=== PATIENT | female | born 1970 | race Caucasian/White ===

== ENCOUNTER 2018-01-01 13:29 | Emergency (ER) | payer MEDICAID ==
[~2018-01-01] VITALS: Ht 165.1 cm; Wt 84.8 kg
[~2018-01-01 13:29] MED LIST: ACETAMINOPHEN-1 EAC1 PO; ADVAIR 250-501 EACH IH; AMITRIPTYLINE H50 M3 GT; BACLOFEN20 MG PO; BACTRIM DS TAB1 EACH PO; BENTYL 10 MG CA10 M1 PO; BENTYL20 MG PO; BUPROPION HCL100 MG PO; BUSPAR15 MG PO; BUSPIRONE HCL10 MG PO; CARISOPRODOL 3350 MG PO; CELEXA40 MG PO; CLONAZEPAM; CLONAZEPAM 0.50.5 M1 PO; CLONAZEPAM 1 MG1 M1 NG; CLONAZEPAM 1 MG1 M1 PO; DILAUDID2 M1; DIVALPROEX SOD250 M3 PO; DUONEB 2.5-0.5 M3 ML INH; EFFEXOR XR75 MG PO; FENTANYL PA50 MCG/HR TOP; FENTANYL PA50 MCG/HR TRANSDERM; FLEXERIL PO; GABAPENTIN 100100 MG PO; HOME RESPIRATORY TX MISCELL; HYSINGLA ER20 MG PO; KLONOPIN1 MG PO; LEVAQUIN 500 M500 M1 PO; LEVAQUIN 500 M500 M2 PO; LEXAPRO20 MG PO; LYRICA 75 MG CA75 MG PO; METAXALL800 MG PO; MOBIC15 MG PO; NAPROSYN500 MG PO; NEURONTIN 300300 M1 PO; NEURONTIN 400400 M1 PO; NEURONTIN 400M400 M2 PO; NEXIUM 24HR20 MG PO; NEXIUM20 M1 PO; NEXIUM40 MG PO; NICOTINE TRANSD21 M1; NICOTINE TRANSD21 M1 TRANSDERM; NORCO 5-325 TA1 EACH PO; OXYCODONE HCL 55 MG PO; OXYCODONE HCL20 M1 PO; OXYCONTIN10 M1 PO; PERCOCET 5-3251 EACH PO; PHENERGAN 25 MG25 M1 PO; PREDNISONE 20 M20 MG PO; ROXICODONE5 M2 PO; SEROQUEL 100 M100 M1 PO; SEROQUEL 50 MG50 MG PO; SEROQUEL XR200 MG PO; SEROQUEL XR400 MG PO; SEROQUEL200 MG PO; SEROQUEL300 MG PO; SYNTHROID25 MCG PO; TOPROL XL25 MG PO; TRAMADOL 50 MG50 MG PO; TRAZADONE; TRAZODONE 150150 M1 PO; TRAZODONE HCL100 MG PO; ULTRAM 50MG TAB50 MG PO; VENLAFAXIN75 MG/1 T2 PO; VENLAFAXINE HC150 M1 PO; VENTOLIN HFA 1818 GM PO; VENTOLIN17 GM INH; VISTARIL 25 MG25 M1; VITAMIN B-12500 MCG PO; VITAMIN D3400 UNIT PO; XANAX 0.5 MG0.5 M1 PO; XARELTO10 M1 PO; ZANAFLEX4 MG PO; ZANTAC 7575 MG PO; ZOFRAN 4 MG ORAL4 M1 DIS; ZOHYDRO ER15 M1 PO; hydrocortisone PO
[2018-01-01] MEDS ORDERED: HYSINGLA ER60 MG PO (13:40)
[2018-01-01] MEDS ORDERED: CALCIUM 600 +1 EAC1 PO (13:43)
[2018-01-01] MEDS ORDERED: NEXIUM40 MG PO (13:44)
[2018-01-01] MEDS ORDERED: LOPRESSOR25 PO (13:44)
[2018-01-01] MEDS ORDERED: TRAMADOL 50 MG50 MG PO (13:46)
[2018-01-01 14:07] LABS: ABSOLUTE BASOPHILS 0.1 thou/uL (0.0-0.2); ABSOLUTE EOSINOPHILS 0.7 thou/uL (0.0-0.7); ABSOLUTE LYMPHOCYTES 3.6 thou/uL (0.8-5.3); ABSOLUTE MONOCYTES 0.8 thou/uL (0.0-1.2); ABSOLUTE NEUTROPHILS 6.2 thou/uL (1.6-8.1); BASOPHILS 0.8 %; HEMATOCRIT 35.7 % (37.0-47.0); HEMOGLOBIN 11.8 gm/dL (12.0-15.0); LYMPHOCYTES 31.4 %; MCH 27.9 pg (26.0-34.0); MCHC 33.2 g/dL (28.0-37.0); MCV 84.1 fL (80.0-100.0); MONOCYTES 7.3 %; MPV 6.8 fl. (7.2-11.1); NUCLEATED RBCS 0 /100WBC; PLATELET COUNT* 367 thou/uL (150-400); POLYS 54.5 %; RBC 4.24 mil/uL (4.20-5.00); RDW-CV 16.3 % (10.5-14.5); WBC 11.5 thou/uL (4.0-11.0)
[2018-01-01 14:16] LABS: ANION GAP 10 mmol/L (7-16); BUN 18 mg/dL (7-18); CALCIUM 8.8 mg/dL (8.5-10.1); CHLORIDE 98 mmol/L (98-107); CO2 26 mmol/L (21-32); CREATININE 1.8 mg/dL (0.6-1.3); GLUCOSE 110 mg/dL (70-99); POTASSIUM 3.6 mmol/L (3.5-5.1); SODIUM 134 mmol/L (136-145)
[2018-01-01 14:18] LABS: APTT 28.8 Seconds (25.0-31.3); PROTIME 9.4 Seconds (9.20-11.50)
[2018-01-01 14:25] LABS: ALBUMIN 3.7 g/dL (3.4-5.0); ALKALINE PHOSPHATASE 113 U/L (46-116); LIPASE 100 U/L (73-393); SGOT 34 U/L (15-37); SGPT 31 U/L (30-65); TOTAL BILIRUBIN 0.2 mg/dL (<0.1-1.0); TOTAL PROTEIN 7.2 g/dL (6.4-8.2); TROPONIN-I LEVEL <0.06 ng/mL (<0.06)
[2018-01-01] MEDS ORDERED: PREDNISONE 20 M20 M1 PO (15:07)
[2018-01-01] MEDS ORDERED: ZPAK PO (15:07)
[2018-01-01 15:18] VITALS: BP 102/58
--- NOTE | 2018-01-01 16:24 | EKG ---
[place] [address] ELECTROCARDIOGRAM REPORT Name: KIMMIE URBINA Room: [facility]#: [id number] Admission: 01/01/18 Attend Phys: Discharge: 01/01/18 Date of : 66 Report #: [id number] THIS REPORT FOR: //name// [facility] ED Test Date: 2018-01-01 Test Time: 14:03:38 Pat Name: KIMMIE URBINA Department: Room: Gender: F Community Coordinator [employer]: Bri REIS : 1970 Requested By: Jonathon Smith Order Number: [id number] MD: Corby Merritt Measurements Intervals [place] Rate: 91 P: 50 TX: 154 QRS: 25 QRSD: 81 T: 17 QT: 362 QTc: 446 Interpretive Statements Sinus rhythm Compared to ECG 05/18/2017 20:16:55 Sinus tachycardia no longer present Atrial abnormality no longer present T-wave abnormality no longer present Electronically Signed On 01-01-2018 16:24:04 CDT by Corby Merritt [email or web address] <ELECTRONICALLY SIGNED> By: Corby Merritt MD, [facility] 01/01/18 1624 1403 140 Corby Merritt MD, [facility] /EPI
== END 2018-01-01 15:19 | disposition home or self-care (01) ==
LOC: M.ERS 13:29
PROVIDERS: Family Medicine
DX: R55 Syncope and collapse (principal); J44.1 Chronic obstructive pulmonary disease with (acute) exacerbation; F41.9 Anxiety disorder, unspecified; G89.29 Other chronic pain; M54.9 Dorsalgia, unspecified; F11.10 Opioid abuse, uncomplicated; F19.10 Other psychoactive substance abuse, uncomplicated; F17.210 Nicotine dependence, cigarettes, uncomplicated; F12.10 Cannabis abuse, uncomplicated; Z88.8 Allergy status to other drugs, medicaments and biological substances

== ENCOUNTER 2018-02-13 14:17 | Emergency (ER) | payer MEDICAID ==
[~2018-02-13] VITALS: Ht 165.1 cm; Wt 86.2 kg
[~2018-02-13 14:17] MED LIST changes: +CALCIUM 600 +1 EAC1 PO; +HYSINGLA ER60 MG PO; +LOPRESSOR25 PO; +PREDNISONE 20 M20 M1 PO; +ZPAK PO
[2018-02-13] MEDS ORDERED: QUETIAPINE FUM100 MG PO (14:44)
[2018-02-13] MEDS ORDERED: PERCOCET 7.5-31 EACH PO (14:45)
[2018-02-13] MEDS ORDERED: PROAIR HFA8.5 GM INH (14:46)
[2018-02-13 15:16] LABS: ABSOLUTE BASOPHILS 0.1 thou/uL (0.0-0.2); ABSOLUTE EOSINOPHILS 0.4 thou/uL (0.0-0.7); ABSOLUTE LYMPHOCYTES 2.7 thou/uL (0.8-5.3); ABSOLUTE MONOCYTES 0.8 thou/uL (0.0-1.2); BASOPHILS 0.9 %; EOSINOPHILS 3.7 %; HEMATOCRIT 33.4 % (37.0-47.0); HEMOGLOBIN 10.9 gm/dL (12.0-15.0); LYMPHOCYTES 22.4 %; MCHC 32.6 g/dL (28.0-37.0); MONOCYTES 6.9 %; MPV 7.3 fl. (7.2-11.1); NUCLEATED RBCS 0 /100WBC; PLATELET COUNT* 566 thou/uL (150-400); POLYS 66.1 %; RBC 3.89 mil/uL (4.20-5.00); RDW-CV 14.3 % (10.5-14.5); WBC 12.2 thou/uL (4.0-11.0)
[2018-02-13 15:20] LABS: CALCIUM 9.1 mg/dL (8.5-10.1); CREATININE 1.5 mg/dL (0.6-1.3); POTASSIUM 3.6 mmol/L (3.5-5.1)
[2018-02-13 15:25] LABS: ALBUMIN 3.2 g/dL (3.4-5.0); TOTAL BILIRUBIN 0.2 mg/dL (<0.1-1.0); TOTAL PROTEIN 7.7 g/dL (6.4-8.2)
[2018-02-13 16:16] LABS: URINE BILIRUBIN NEGATIVE (Negative); URINE BLOOD NEGATIVE (Negative); URINE CLARITY CLEAR; URINE COLOR YELLOW; URINE GLUCOSE-RANDOM NEGATIVE (Negative); URINE KETONES NEGATIVE (Negative); URINE LEUKOCYTES-REFLEX TRACE (Negative); URINE NITRITE-REFLEX NEGATIVE (Negative); URINE PROTEIN NEGATIVE (Negative); URINE UROBILINOGEN 0.2 E.U./dl (0.2-1.0)
[2018-02-13 16:20] LABS: MUCUS None Seen strn/LPF (None Seen); SQUAMOUS >10 Many /LPF (0-3)
[2018-02-13 16:21] LABS: BACTERIA-REFLEX None Seen /HPF (None Seen); CRYSTALS None Seen /LPF (None Seen); HYALINE CASTS 0-3 Few /LPF (None Seen); URINE RBC None Seen /HPF (0-2); URINE WBC-REFLEX 0-5 Rare /HPF (0-5)
[2018-02-13 16:38] LABS: AMP/METHAMP Negative (Negative); BARBITURATES Negative (Negative); BENZODIAZEPINES POSITIVE (Negative); COCAINE Negative (Negative); METHADONE Negative (Negative); OPIATES POSITIVE (Negative); PCP Negative (Negative); THC Negative (Negative)
[2018-02-13] MEDS ORDERED: CIPRO500 MG PO (16:41)
[2018-02-13 16:59] VITALS: BP 106/64
== END 2018-02-13 17:00 | disposition home or self-care (01) ==
LOC: M.ERS 14:17
PROVIDERS: Physician Assistant
DX: G89.18 Other acute postprocedural pain (principal); R10.9 Unspecified abdominal pain; J44.9 Chronic obstructive pulmonary disease, unspecified; J45.909 Unspecified asthma, uncomplicated; F41.9 Anxiety disorder, unspecified; G89.29 Other chronic pain; M54.9 Dorsalgia, unspecified; F17.210 Nicotine dependence, cigarettes, uncomplicated; F12.10 Cannabis abuse, uncomplicated

== ENCOUNTER 2018-02-16 20:36 | Emergency (ER) | payer MEDICAID ==
[~2018-02-16] VITALS: Ht 165.1 cm; Wt 86.2 kg
[~2018-02-16 20:36] MED LIST changes: +CIPRO500 MG PO; +PERCOCET 7.5-31 EACH PO; +PROAIR HFA8.5 GM INH; +QUETIAPINE FUM100 MG PO
[2018-02-16 21:19] LABS: ABSOLUTE BASOPHILS 0.1 thou/uL (0.0-0.2); ABSOLUTE EOSINOPHILS 0.5 thou/uL (0.0-0.7); ABSOLUTE LYMPHOCYTES 2.3 thou/uL (0.8-5.3); ABSOLUTE MONOCYTES 0.8 thou/uL (0.0-1.2); ABSOLUTE NEUTROPHILS 5.1 thou/uL (1.6-8.1); BASOPHILS 0.9 %; HEMATOCRIT 32.2 % (37.0-47.0); HEMOGLOBIN 10.5 gm/dL (12.0-15.0); MCH 27.7 pg (26.0-34.0); MCHC 32.6 g/dL (28.0-37.0); MCV 85.1 fL (80.0-100.0); MONOCYTES 9.5 %; MPV 6.7 fl. (7.2-11.1); NUCLEATED RBCS 0 /100WBC; PLATELET COUNT* 492 thou/uL (150-400); POLYS 57.6 %; RBC 3.79 mil/uL (4.20-5.00); RDW-CV 14.3 % (10.5-14.5); WBC 8.9 thou/uL (4.0-11.0)
[2018-02-16 21:25] LABS: POTASSIUM 3.7 mmol/L (3.5-5.1)
[2018-02-16 21:29] LABS: ALBUMIN 3.2 g/dL (3.4-5.0); TOTAL BILIRUBIN 0.1 mg/dL (<0.1-1.0); TOTAL PROTEIN 7.4 g/dL (6.4-8.2)
[2018-02-16 23:27] VITALS: BP 132/94
== END 2018-02-16 23:29 | disposition home or self-care (01) ==
LOC: M.ERS 20:36
PROVIDERS: Physician Assistant
DX: G89.18 Other acute postprocedural pain (principal); R10.9 Unspecified abdominal pain; Z48.01 Encounter for change or removal of surgical wound dressing; J44.9 Chronic obstructive pulmonary disease, unspecified; J45.909 Unspecified asthma, uncomplicated; F41.9 Anxiety disorder, unspecified; G89.29 Other chronic pain; M54.9 Dorsalgia, unspecified; F17.210 Nicotine dependence, cigarettes, uncomplicated; Z88.8 Allergy status to other drugs, medicaments and biological substances

== ENCOUNTER 2018-06-10 19:16 | Inpatient (IN) | payer MEDICAID ==
[~2018-06-10] VITALS: Ht 165.1 cm; Wt 88.9 kg
--- NOTE | ~2018-06-10 | PROC ---
[facility] [address] [place] [address] PROCEDURE REPORT Name: KIMMIE URBINA Room: [address] IN M.R.#: [id number] Admission: 06/10/18 Attend Phys: Jeffery Davison MD Discharge: 06/17/18 Date of : 66 Report #: [id number] THIS REPORT FOR: //name// For GI report, please see the Provation report in Perceptive 7 content. By: 0705Medical Records Staff GABRIEL /SHELBY
--- NOTE | ~2018-06-10 | CON ---
[facility] [address] [place] [address] CONSULTATION Name: KIMMIE URBINA Room: [place] [address] ADM IN .R.#: [id number] Admission: 06/10/18 Attend Phys: Jeffery Davison MD Discharge: Date of : 66 Report #: [id number] THIS REPORT FOR: //name// CC: Jeffery Linares DATE OF SERVICE: 06/16/2018 REASON FOR CONSULTATION: Dysphagia. HISTORY OF PRESENT ILLNESS: This is a 47-year-old female with significant medical history of COPD, who presented with pneumonia and UTI on 06/10/2018. The patient initially had lactic acidosis. She was checked for pulmonary embolism which was negative. Since hospitalization, she has been treated for her condition with antibiotics and respiratory treatments. She has complained of dysphagia and inability to swallow. We were asked to evaluate her in this regard. The patient admits that she has gastroesophageal reflux disease for which she takes PPI. She denies nausea, vomiting, hematemesis, melena or constipation. 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 ALLERGIES: SIGNIFICANT TO TAPE. MEDICATIONS: Please refer to MAR. SOCIAL HISTORY: The patient smokes 10 cigarettes per day. Denies alcohol use. She also has used recreational drugs such as marijuana. FAMILY HISTORY: Significant for hypertension. PHYSICAL EXAMINATION: VITAL SIGNS: Reveals blood pressure of 100/69, respirations 16, pulse 94, temperature 98.7. LUNGS: Clear. CARDIOVASCULAR: Regular. ABDOMEN: Soft, tender to palpation in periumbilical region. Bowel sounds are positive. NEUROLOGIC: The patient is alert, oriented x 3. She has prostheses of the left eye. LABORATORY DATA: Reveal sodium of 139, potassium 3.9, BUN is 7, creatinine 1.0, glucose 105. Lipase is within normal limit. Liver [place] [address] CONSULTATION Name: KIMMIE URBINA Room: [address] IN [facility].#: [id number] Admission: 06/10/18 Attend Phys: Jeffery Davison MD Discharge: Date of : 66 Report #: [id number] INR is normal. WBC is 8.7 with hemoglobin of 11.3 and platelet of 335. IMAGING: Chest x-ray on 06/13/2018 showed elevation of the right hemidiaphragm with atelectasis in the right lower lung. Minimal pleural effusion and atelectasis with increased atelectasis from previous studies. ASSESSMENT AND PLAN: The patient with long history of gastroesophageal reflux disease who complains of dysphagia. We will consider upper endoscopy to further evaluate this. If the patient has Schatzki ring or strictures, we may consider dilation of her esophagus. We will make further recommendation once her upper endoscopy is complete. By: [id number] 0001Ailyn Bills MD /heriberto
[2018-06-10] MEDS ORDERED: MS CONTIN15 MG PO (19:20)
[2018-06-10] MEDS ORDERED: TIZANIDINE PO (19:20)
[2018-06-10 19:21] VITALS: BP 145/98
[2018-06-10] MEDS ORDERED: LORAZEPAM (19:24)
[2018-06-10] MEDS ORDERED: EFFEXOR PO (19:24)
[2018-06-10] MEDS ORDERED: NEURONTIN 300300 M1 PO (19:25)
--- NOTE | 2018-06-10 19:32 | NUR ---
PT HAS A GLASS EYE PRESENT ON THE LEFT. STATES DUE TO AN ACCIDENT WHEN SHE WAS [age] YEARS OLD. PT ALERT AND ORIENTED. NO EDEMA OBSERVED. STATES SHE "pASSED OUT" AND HIT THE GROUND WHEN SHE WAS AT HOME AND THAT IS WHY HER SO CALLED EMS TO TRANSPORT HER TO THE HOSPITAL.
[2018-06-10 20:18] LABS: ABSOLUTE BASOPHILS 0.1 thou/uL (0.0-0.2); ABSOLUTE EOSINOPHILS 0.4 thou/uL (0.0-0.7); ABSOLUTE MONOCYTES 0.9 thou/uL (0.0-1.2); ABSOLUTE NEUTROPHILS 11.1 thou/uL (1.6-8.1); BASOPHILS 0.5 %; EOSINOPHILS 2.5 %; HEMATOCRIT 33.1 % (37.0-47.0); LYMPHOCYTES 13.9 %; MCHC 33.1 g/dL (28.0-37.0); MCV 84.4 fL (80.0-100.0); MONOCYTES 6.4 %; MPV 7.1 fl. (7.2-11.1); NUCLEATED RBCS 0 /100WBC; PLATELET COUNT* 312 thou/uL (150-400); POLYS 76.7 %; RBC 3.92 mil/uL (4.20-5.00); RDW-CV 13.8 % (10.5-14.5); WBC 14.4 thou/uL (4.0-11.0)
[2018-06-10 20:28] LABS: ANION GAP 7 mmol/L (7-16); BUN 7 mg/dL (7-18); CALCIUM 8.8 mg/dL (8.5-10.1); CHLORIDE 104 mmol/L (98-107); CO2 28 mmol/L (21-32); GLUCOSE 105 mg/dL (70-99); POTASSIUM 3.9 mmol/L (3.5-5.1); SODIUM 139 mmol/L (136-145)
[2018-06-10 20:39] LABS: ALBUMIN 3.6 g/dL (3.4-5.0); ALKALINE PHOSPHATASE 100 U/L (46-116); LIPASE 72 U/L (73-393); MAGNESIUM 2.1 mg/dL (1.8-2.4); NT-PRO BRAIN NAT PEPTIDE 364 pg/mL (<300); SGOT 26 U/L (15-37); SGPT 24 U/L (30-65); TOTAL BILIRUBIN 0.3 mg/dL (<0.1-1.0); TROPONIN-I LEVEL <0.06 ng/mL (<0.06)
[2018-06-10 20:42] LABS: INFLUENZA A ANTIGEN None Detected (None Detect); INFLUENZA B ANTIGEN None Detected (None Detect)
[2018-06-10 21:03] LABS: URINE BILIRUBIN NEGATIVE (Negative); URINE BLOOD NEGATIVE (Negative); URINE CLARITY CLEAR; URINE COLOR STRAW; URINE GLUCOSE-RANDOM NEGATIVE (Negative); URINE KETONES NEGATIVE (Negative); URINE LEUKOCYTES-REFLEX NEGATIVE (Negative); URINE PROTEIN NEGATIVE (Negative); URINE SPECIFIC GRAVITY <= 1.005 (1.005-1.030); URINE UROBILINOGEN 0.2 E.U./dl (0.2-1.0)
[2018-06-10 21:05] LABS: URINE NITRITE-REFLEX POSITIVE (Negative)
[2018-06-10 21:17] LABS: CASTS None Seen /LPF (None Seen); CRYSTALS None Seen /LPF (None Seen); MUCUS None Seen strn/LPF (None Seen); SQUAMOUS 0-3 Few /LPF (0-3)
[2018-06-10 21:18] LABS: BACTERIA-REFLEX 1-9 Few /HPF (None Seen); URINE RBC None Seen /HPF (0-2); URINE WBC-REFLEX None Seen /HPF (0-5)
[2018-06-10 22:40] VITALS: BP 120/74
[2018-06-10 23:00] VITALS: BP 155/85
--- NOTE | 2018-06-11 03:10 | NUR ---
PT ADMIT TO ROOM AT 255. PT LETHARGIC AROUSABLE. O2 SATS 93% ON 3 LITERS. PT APPEARS TO BE VERY MEDICATED. PT BROUGHT MEDICATION TO HOSPITAL. SECURITY PICKED UP MEDICATIONS. PT HAS LEFT PROSTHETIC EYE. SHE TOOK EYE OUT AND LOST IT. RN SEARCHED BED AND FOUND EYE AND PLACED IN LABELED CUP WITH NS. IVF NS @ 150MLS/HR TO L HAND. TELEMETRY SHOWS SR. FALL PRECAUTIONS IN PLACE. WILL CONTINUE TO MONITOR.
[2018-06-11 04:00] VITALS: BP 138/81
[2018-06-11 07:51] VITALS: BP 138/69
--- NOTE | 2018-06-11 08:34 | NUR ---
ASSUMED CARE OF PT THIS AM AROUND 0715- SNOW GROOMER IN PLACE ORDERED, TRACING SR- UPON ASSESSMENT PT NOTED TO BE UP ON PERSONAL PHONE- PT A&O X4- CONTINENT OF BOWEL AND BLADDER- UP AD-ALEJANDRA IN ROOM, STEADY GAIR NOTED- COURSE LUNG SOUNDS WITH EXPIRATORY WHEEZING NOTED- BREATHING TX PER R/T- COUGH NOTED; PT REPORTS YELLOW/DARK SPUTUM- ABDOMEN SOFT/ROUND/OBESE, BS X4 QUADS- PT REPORTS LAST BM 06/10/18- IV NOTED TO LEFT HAND INTACT, IVF INFUSSING PRESCIBED- GOOD PO INTAKE NOTED THIS AM WITH BREAKFAST- PT REPORTS PAIN 04/30 TO LOWER BACK THIS AM- REPOSITIONING IN PLACE- PRN PERCOCET THIS AM AT 0819- CALL LIGHT AND PERSONAL BELONGINGS WITH IN REACH- HOURLY ROUNDS IN PLACE R/T SAFETY/NEEDS- ALL NEEDS MET AT THIS TIME-WCTM
--- NOTE | 2018-06-11 10:06 | EKG ---
[place] [address] ELECTROCARDIOGRAM REPORT Name: KIMMIE URBINA Room: [place] [address] ADM IN .R.#: [id number] Admission: 06/10/18 Attend Phys: Jeffery Davison MD Discharge: Date of : 66 Report #: [id number] THIS REPORT FOR: //name// [facility] ED Test Date: 2018-06-10 Test Time: 19:27:33 Pat Name: KIMMIE URBINA Department: Room: [facility] Gender: F Disaster Or Damage Control Specialist: Ghulam MEJIA : 1970 Requested By: Pedro Owens Order Number: [id number] MD: Corby Merritt Measurements Intervals [place] Rate: 115 P: 131 MN: 141 QRS: 3 QRSD: 86 T: -11 QT: 309 QTc: 428 Interpretive Statements Sinus tachycardia Low voltage, extremity leads Compared to ECG 01/01/2018 14:03:38 Low QRS voltage now present Sinus rhythm no longer present Electronically Signed On 06-11-2018 10:06:31 CDT by Corby Merritt [email or web address] <ELECTRONICALLY SIGNED> By: Corby Merritt MD, FACC 06/11/18 1006 26 26 Corby Merritt MD, [facility] /EPI
--- NOTE | 2018-06-11 11:40 | NUR ---
MET WITH PT TO DISCUSS HOME SITUATION/DC PLANNING. PT STATES SHE LIVES ALONE, HAS S/O REILLY BUT THEY DON'T LIVE TOGETHER ANY LONGER. SHE HAS IN HOME CARE THRU HER MEDICAID WITH [facility], 5.5HR/DAY -5 DAYS/WK. SHE USES WALKER OR W/C. PT STATES SHE HAS BACK PAIN AND CAN ONLY STAND FOR SHORT PERIODS OF TIME. SHE IS ABLE TO DO SOME OF HER OWN ADLS BUT IN HOME CAREGIVERS ASSIST WITH PERSONAL CARE, COOKING, CLEANING, SHOPPING AND TRANPSPORTATION. [place]
[2018-06-11 11:48] VITALS: BP 151/79
[2018-06-11 11:56] LABS: HEMATOCRIT 33.4 % (37.0-47.0); HEMOGLOBIN 10.8 gm/dL (12.0-15.0); MCH 27.8 pg (26.0-34.0); MCHC 32.3 g/dL (28.0-37.0); MCV 85.9 fL (80.0-100.0); MPV 7.7 fl. (7.2-11.1); NUCLEATED RBCS 0 /100WBC; PLATELET COUNT* 280 thou/uL (150-400); RBC 3.89 mil/uL (4.20-5.00); WBC 17.4 thou/uL (4.0-11.0)
[2018-06-11] MEDS ORDERED: CLONAZEPAM 1 MG1 M1 PO (12:08)
[2018-06-11 12:19] LABS: ABSOLUTE LYMPHOCYTES 1.2 thou/uL (0.8-5.3); ABSOLUTE MONOCYTES 0.5 thou/uL (0.0-1.2); ABSOLUTE NEUTROPHILS 15.7 thou/uL (1.6-8.1); ANISOCYTOSIS 1+; PLATELET ESTIMATE ADEQUATE
[2018-06-11 12:20] LABS: POIKILOCYTOSIS 1+
[2018-06-11 16:00] VITALS: BP 144/68
--- NOTE | 2018-06-11 17:25 | NUR ---
PT CLAUDIA RESTING IN BED- [employer] TAX PRINCIPAL IN PLACE TRACING SR/ST THIS SHIFT- IV TO LEFT HAND INTACT, IVF INFUSSING PRESCIBED- LACTIC ORDERED THIS SHIFT AND RESULTED AT 4.9 AT 1206, NOTIFIED WITH ORDERS RECIEVIED FOR BOLUS PER SEPSIS PROTOCOL WITH TOLTAL OF 2600 COMPLETED PRESCIBED- IVF CURRENLTY INFUSSING AT 150ML/HR ORDERED- REDRAW OF LACTIC NOTED TO BE TRENDING DOWN WITH RESULT AT 1409 NOTED TO BE 4.7 AND AT 1622 NOTED TO BE 3.4- ID CONSULTED R/T SEPSIS WITH PNU- RETURNED CONSULT CALL AND STATES HE WILL TRY TO SEE PT THIS EVENING OR IN AM AND TO NOTIFY IF ANY CHANGES PRIOR- BREATHING TX GIVEN PRESCIBED PER R/T THIS SHIFT- PERCOCET GIVEN PER REQUEST AT 1601 R/T BACK PAIN 04/30- PT REPORTS LITTLE EFFECTIVENESS- REPOSITIONING WITH DARK QUIET ROOM IN PLACE- CALL LIGHT AND PERSONAL BELONGINGS WITH IN REACH- HOURLY ROUNDS IN PLACE R/T SAFETY/NEEDS- ALL NEEDS MET AT THIS TIME-WCTM
[2018-06-11 19:38] LABS: AMP/METHAMP Negative (Negative); BARBITURATES Negative (Negative); BENZODIAZEPINES Negative (Negative); COCAINE Negative (Negative); METHADONE Negative (Negative); OPIATES POSITIVE (Negative); PCP Negative (Negative); THC Negative (Negative)
[2018-06-11 20:00] VITALS: BP 162/98
[2018-06-12] VITALS (7 sets, daily range): BP systolic 115–156; BP diastolic 74–103
--- NOTE | 2018-06-12 05:48 | NUR ---
PATIENT RESTED IN BED, NO ACUTE CHANGES. PATIENT DID NOT SHOW SIGNS OF DISTRESS. FALL PRECAUTIONS IN PLACE, CALL LIGHT WITH IN REACH, HOULRY ROUNDING OBSERVED.
--- NOTE | 2018-06-12 09:00 | NUR ---
ASSUMED PT. CARE AND RECEIVED REPORT AT 0730. PT A/OX4, VSS, MONITOR ON TRACING SR. PT. ON 2L NC @ 95%, DOES HAVE CONGESTED COUGH WITH TANNISH COLORED SPUTUM, WHEEZES. PT. REPORTS PAIN IN BAK 04/30, NOT YET TIME FOR PRN MED. [facility]. CALLED AND CLARIFIED PAIN MEDICAITONS AND CLONOZAPAM DOSING. UPDATED IN PT. MED REC AND PHYSICIAN NOTIFIED FOR REORDER. FULL ASSESSMENT COMPLETED, REFER TO CHARTING. CALL LIGHT IN REACH, WILL CONTINUE WITH PLAN OF CARE.
[2018-06-12] MEDS ORDERED: OXYCODONE HCL10 MG PO (09:36)
--- NOTE | 2018-06-12 11:13 | NUR ---
CONSULTED TO PLACE MIDLINE FOR PT NEEDING MULTIPLE ATB AND DIFFICULT IV AND LAB DRAW. LEFT UPPER ARM ASSESSED. LEFT BASILIC IDENITIFIED AND NOTED TO BE WIDLEY PATENT. SPOKE WITH PT REGUARDING RISK AND BENEFITVOICED UNDERSTANDING AND AGREED. SINGLE LUMAN POWER PICC TO LEFT BASILIC TRIM AT 11CM AND ADVANCED TO 0CM EXTERNAL. LINE PACED PER HOSPITAL POLICY. LINE SECURED AND RELEASED FOR USE. PRIMARY NURSING AWARE. TOLERATED WELL.
[2018-06-12 11:25] LABS: ABSOLUTE EOSINOPHILS 0.3 thou/uL (0.0-0.7); EOSINOPHILS 2.5 %; HEMOGLOBIN 9.6 gm/dL (12.0-15.0); MPV 7.3 fl. (7.2-11.1); NUCLEATED RBCS 0 /100WBC
[2018-06-12 11:27] LABS: ABSOLUTE BASOPHILS 0.1 thou/uL (0.0-0.2); ABSOLUTE LYMPHOCYTES 2.3 thou/uL (0.8-5.3); ABSOLUTE MONOCYTES 0.7 thou/uL (0.0-1.2); ABSOLUTE NEUTROPHILS 7.6 thou/uL (1.6-8.1); BASOPHILS 1.2 %; HEMATOCRIT 29.1 % (37.0-47.0); LYMPHOCYTES 21.1 %; MCH 28.2 pg (26.0-34.0); MCHC 32.9 g/dL (28.0-37.0); MCV 85.7 fL (80.0-100.0); MONOCYTES 6.1 %; PLATELET COUNT* 290 thou/uL (150-400); POLYS 69.1 %; RDW-CV 14.5 % (10.5-14.5)
--- NOTE | 2018-06-12 18:52 | NUR ---
PT. STABLE THROUGH OUT SHIFT. PT. REMOVING OXYGEN, SAT. ARE > 90% TODAY. PT. COMPLAINING OF "CHEST HEAVINESS", DENIES CARDIAC CHEST PAIN, BUT STATES SHE FEELS WHEEZING AND HAVING TROUBLE BREATHING. PRN BREATHING TREATMENT OBTAINED. MIDLINE PLACED THIS SHIFT, ABLE TO DRAW LABS FROM MIDLINE TODAY. MIDLINE WITH MILD BLEEDING AROUND PUNCTURE SITE, DRESSING CHANGED PER PROTOCOL. PAIN MANAGED WITH HOME MEDS REORDERED. HOURLY ROUNDING COMPLETED THROUGH OUT THE DAY FOR PT. SAFETY.
[2018-06-13] VITALS: BP 124/85
[2018-06-13 04:00] VITALS: BP 99/60
--- NOTE | 2018-06-13 05:23 | NUR ---
PATIENT RESTED IN BED. PATIENT MIDLINE NO LONGER FUNCTIONAL, MIDLINE REMOVED. STAFF UNABLE TO GET IV ACCESS. DOCTOR NOTIFIED SEE ORDERS. NO ACUTE CHANGES, PATIENT IS NOT CURRENTLY SHOWING SIGNS OF DISTRESS. FALL PRECAUTIONS IN PLACE, HOURLY ROUNDING OBSERVED, CALL LIGHT WITH IN REACH.
[2018-06-13 05:45] LABS: ABSOLUTE BASOPHILS 0.1 thou/uL (0.0-0.2); ABSOLUTE EOSINOPHILS 0.7 thou/uL (0.0-0.7); ABSOLUTE LYMPHOCYTES 3.2 thou/uL (0.8-5.3); ABSOLUTE MONOCYTES 0.8 thou/uL (0.0-1.2); BASOPHILS 1.1 %; EOSINOPHILS 6.6 %; HEMATOCRIT 33.3 % (37.0-47.0); HEMOGLOBIN 10.8 gm/dL (12.0-15.0); LYMPHOCYTES 29.5 %; MCHC 32.3 g/dL (28.0-37.0); MCV 86.5 fL (80.0-100.0); MONOCYTES 7.2 %; MPV 7.4 fl. (7.2-11.1); NUCLEATED RBCS 0 /100WBC; PLATELET COUNT* 316 thou/uL (150-400); POLYS 55.6 %; RBC 3.85 mil/uL (4.20-5.00); WBC 10.8 thou/uL (4.0-11.0)
[2018-06-13 08:00] VITALS: BP 135/85
--- NOTE | 2018-06-13 10:46 | NUR ---
PT ALERT, ORIENTED AND ALL VSS ON ROOM AIR. C/O BACK PAIN- MEDICATED PER EMAR. PT DOES HAVE PRODUCTIVE COUGH- BROWN/GREEN TINGED SPUTUM, STATES UNCHANGED FROM YESTERDAY. EDUCATED ON SAFETY AND PLAN OF CARE. CALL LIGHT IN REACH. PLEASE SEE ASSESSMENT FOR ADDITIONAL INFORMATION. WILL CONTINUE TO MONITOR
[2018-06-13 11:49] VITALS: BP 145/97
--- NOTE | 2018-06-13 12:35 | CON ---
[address] [address] CONSULTATION Name: KIMMIE URBINA Room: [place] [address] ADM IN M.R.#: [id number] Admission: 06/10/18 Attend Phys: Jeffery Davison MD Discharge: Date of : 66 Report #: [id number] THIS REPORT FOR: //name// CC: Jeffery Linares DATE OF SERVICE: 06/12/2018 INFECTIOUS DISEASE CONSULTATION ATTENDING PHYSICIAN: Dr. Dozier. REASON FOR EVALUATION: Pneumonitis, possible urinary tract infection with evidence of early sepsis. HISTORY OF PRESENT ILLNESS: Chart reviewed, the patient examined. This is a 47-year-old with known history of COPD with chronic pain issues, who presented with complaints of a fall. She states it was more her legs gave out. She has had an onset of progressive shortness of breath as well as cough which was productive of some bloody sputum and had some left-sided chest discomfort as well and experienced some nausea with emesis. She experienced some low-grade temperature elevations. She was evaluated in the Emergency Room. Chest x-ray was fairly unremarkable; however, CT of the chest did show changes in the left lower lobe. Initial lactic acid was 1.9; however it peaked at 4.9 and more recently 3.4, in response to some . Blood cultures were sterile thus far. Urinalysis did show some mild bacteriuria. She was empirically started on therapy with ceftriaxone and azithromycin. Overall, she feels somewhat improved over the course of the last 24 hours. She is mildly encephalopathic. She appears ill, not overtly toxic. ALLERGIES: LISTED TO TAPE. CURRENT MEDICATIONS: Include azithromycin, trazodone, clonazepam, ceftriaxone, Trolamine, pantoprazole, ipratropium and albuterol inhaler, quetiapine, meloxicam, buspirone and dicyclomine. PAST MEDICAL HISTORY: As noted above, COPD, hypertension, component of asthma, anxiety, chronic back pain with previous surgeries x 3, opioid dependence and history of depression as well. SOCIAL HISTORY: Smokes cigarettes currently, some illicit drug use. No ethanol. FAMILY HISTORY: Noncontributory. REVIEW OF SYSTEMS: As above. Denies any [place] [address] CONSULTATION Name: KIMMIE URBINA Room: [address] IN [facility]#: [id number] Admission: 06/10/18 Attend Phys: Jeffery Davison MD Discharge: Date of : 66 Report #: [id number] complaints at present. PHYSICAL EXAMINATION: GENERAL: She appears ill. She is cooperative, somewhat undernourished. VITAL SIGNS: Temperature 97.9, pulse 100, respirations 18 and blood pressure 115/74. SKIN: Warm, dry. No rashes. HEENT: Nasal cannula oxygen in place. NECK: Supple. LUNGS: Scattered coarse breath sounds. There are no wheezes. HEART: Regular, tachycardic. I do not appreciate a murmur. ABDOMEN: Soft, mildly distended, and is somewhat obese. There are no peritoneal signs. GENITOURINARY: Deferred. RECTAL: Deferred. LABORATORY DATA: Drug screen only positive for opiates. Lactic acid most recently 3.4 and peaked at 4.9. CBC: White count of 17.4, H and H 10.8 and 33.4 and platelets of 280,000. Influenza antigen was negative for A and B. Electrolytes: Sodium 139, potassium 3.9, chloride 104, bicarbonate is 28, BUN and creatinine 7 and 1.0 and glucose 105. LFTs unremarkable. Albumin of 3.6. Total protein 7.0. Estimated GFR of 59. Urinalysis, [address] of the chest PE protocol, no evidence of PE, chronic elevation of right hemidiaphragm, strand-like scarring atelectasis in the right lower lobe and minimal strand in the left lower lobe as well. Blood cultures are sterile. ASSESSMENT AND PLAN: Probable lower respiratory tract infection. She clearly is quite ill with evidence of perhaps early pleuritic pain as well. We will continue empiric antimicrobial therapy with ceftriaxone and this will give us coverage of certain degree for any urinary tract infection and we will continue to monitor expectantly and try to push the fluids, increase her activity as allowed. There is a sputum culture pending. We will await on those results. <ELECTRONICALLY SIGNED> By: Trevor Ansari MD 06/13/18 1235 0936 [id number] Ansari MD /nt
[2018-06-13 16:34] VITALS: BP 113/67
--- NOTE | 2018-06-13 17:30 | NUR ---
ASSESSMENT REMAINS UNCHANGED THROUGHOUT SHIFT. PT RESTING COMFORTABLY. PT REMAINS WITHOUT PIV- NOW ON ORAL ABX AND MD AWARE.
[2018-06-13 20:00] VITALS: BP 158/94
[2018-06-14] VITALS: BP 142/91
[2018-06-14 04:00] VITALS: BP 112/61; BP 140/87
--- NOTE | 2018-06-14 04:05 | NUR ---
ASSUMED PT CARE AT 1930. ASSESSMENT COMPLETED CHARTED. ABLE TO MAKE NEEDS KNOWN. C/O BACK PAIN AND GAVE SCHEDULED PAIN MEDICATION AND BACK CREAM. PT RESTING IN BED REST OF THE SHIFT. NO CONCERNS AT THIS TIME AND NO IV ACCESS. WILL CONTINUE TO MONITOR.
[2018-06-14 08:00] VITALS: BP 154/84
[2018-06-14 11:13] LABS: ABSOLUTE BASOPHILS 0.1 thou/uL (0.0-0.2); ABSOLUTE EOSINOPHILS 0.6 thou/uL (0.0-0.7); ABSOLUTE LYMPHOCYTES 2.5 thou/uL (0.8-5.3); ABSOLUTE MONOCYTES 0.6 thou/uL (0.0-1.2); ABSOLUTE NEUTROPHILS 4.9 thou/uL (1.6-8.1); BASOPHILS 0.8 %; EOSINOPHILS 7.1 %; HEMATOCRIT 34.4 % (37.0-47.0); HEMOGLOBIN 11.3 gm/dL (12.0-15.0); LYMPHOCYTES 28.5 %; MCHC 32.8 g/dL (28.0-37.0); MCV 85.3 fL (80.0-100.0); MONOCYTES 7.2 %; MPV 7.3 fl. (7.2-11.1); NUCLEATED RBCS 0 /100WBC; PLATELET COUNT* 335 thou/uL (150-400); POLYS 56.4 %; RBC 4.03 mil/uL (4.20-5.00); WBC 8.7 thou/uL (4.0-11.0)
[2018-06-14 12:13] VITALS: BP 96/67
[2018-06-14 16:03] VITALS: BP 163/90
--- NOTE | 2018-06-14 17:02 | 2DMMODE ---
[place] [address] 2 D/M-MODE ECHOCARDIOGRAM Name: KIMMIE URBINA Room: [facility] ADM IN [facility]#: [id number] Admission: 06/10/18 Attend Phys: Jeffery Davison, Discharge: Date of : 66 Date of Service: 06/14/18 1702 Report #: [id number] THIS REPORT FOR: //name// APPROVED REPORT Study performed: 06/14/2018 16:36:36 EXAM: Limited 2D, Doppler, and color-flow Echocardiogram Patient Location: In-Patient Room #: [facility] Status: routine BSA: 1.88 HR: 111 bpm BP: 163/90 mmHg Rhythm: NSR Other Information Study Quality: Good Indications Abnormal ECG 2D Dimensions IVSd: 12.35 (7-11mm) LVDd: 38.05 mm PWd: 9.56 (7-11mm) LVDs: 19.39 (25-40mm) Tricuspid Valve RAP Estimate: 5.00 mmHg TR Peak Gr.: 26.86 mmHg RVSP: 31.00 mmHg PA Pressure: 31.00 mmHg Left Ventricle The left ventricle is normal size. There is normal LV segmental wall motion. There is normal left ventricular wall thickness. The left ventricular systolic function is normal. The left ventricular ejection fraction is within the normal range. LVEF is 65-70%. Right Ventricle The right ventricle is normal size. The right ventricular systolic function is normal. Atria The left atrium size is normal. The right atrium size is normal. [address] [address] 2 D/M-MODE ECHOCARDIOGRAM Name: KIMMIE URBINA Room: [address] IN [facility]#: [id number] Admission: 06/10/18 Attend Phys: Jeffery Davison, Discharge: Date of : 66 Date of Service: 06/14/181701 Report #: [id number] Aortic Valve The aortic valve is normal in structure. No aortic regurgitation is present. There is no aortic valvular stenosis. Mitral Valve The mitral valve is normal in structure. There is no mitral valve regurgitation noted. Tricuspid Valve The tricuspid valve is normal in structure. Mild tricuspid regurgitation. Borderline pulmonary hypertension. Pulmonic Valve Pulmonic valve is not well visualized. Great Vessels The aortic root is normal in size. <Conclusion> LVEF is 65-70%.normal wall motion There is no mitral valve regurgitation noted. The mitral valve is normal in structure. There is no aortic valvular stenosis. No aortic regurgitation is present. <ELECTRONICALLY SIGNED> By: Max Franks MD, FACC 06/14/181701 01 01 Max Franks MD, FACC /INF
[2018-06-14 20:00] VITALS: BP 136/87
[2018-06-15] VITALS: BP 101/52
--- NOTE | 2018-06-15 02:55 | NUR ---
ASSUMED CARE. PT ALERT ORIENTED TIME 4. UP AD ALEJANDRA IN ROOM AND HALLS. PROBABLE DC TODAY. NO IV ACCESS. PT REFUSED TO LET RN PLACE PIV. SHE STATED SHE IS A HARD STICK. PT STATED SHE WANTS TO GO HOME WITH A PICC INCASE SHE NEEDS IT. ALSO SHE WANTS TO BE ON 02 FOR SATS >93% CHRONIC BACK PAIN. HS MEDS AND PAIN MEDS GIVEN. TELEMETRY SHOWS ST. O2 AT 2 LITERS PRN.
[2018-06-15 04:00] VITALS: BP 130/62
[2018-06-15 08:00] VITALS: BP 130/82
--- NOTE | 2018-06-15 11:16 | NUR ---
ASSUMED PT CARE AT 07, FULL ASSESMENT DONE CHARTED. PT A/O X4, IS ANXIOUS AT TIMES. PT STATES SHE FEELS LIKE SHE "CANNOT BREATH BECAUSE HER ESOPHAGUS IS CLOSING". DR STRAUSS SPOKE TO PT , CONSULTED GI. PT C/O BACK PAIN, SCHEDULED MEDS GIVEN PER OCT. PT UP AD ALEJANDRA IN ROOM. USES CALL LIGTH APPROROPRIATLY. WILL CONTINUE WITH PLAN OF CARE.
[2018-06-15 12:26] VITALS: BP 110/71
--- NOTE | 2018-06-15 12:48 | NUR ---
Nutrition: Pt admitted with bronchitis. Per RN notes, pt feels like her esophagus is closing up - GI consulted. Regular diet ordered. Labs, Meds, Hx noted. Unsure of po intake today. GOAL: >75% of meals. Mild risk. Pt assessed for high BMI. Per [employer], wts are highly variable; from 180 to 280#. PLEASE REWEIGH PT FOR ACCURACY.
--- NOTE | 2018-06-15 13:37 | NUR ---
CONTINUE TO FOLLOW, MET WITH PT. C/O OF COUGH AND CONGESTION AND SORE THROAT. NO DC DATE KNOWN YET. ENCOURAGED PT TO BE UP MORE. [place].
[2018-06-15 15:00] VITALS: BP 126/87
[2018-06-15 20:00] VITALS: BP 150/94
--- NOTE | 2018-06-15 20:21 | NUR ---
PT TO HAVE EGD TOMORROW, NPO AFTER MIDNIGHT. PT SLEEPY TONIGHT, ON 2L O2, SATS LOW TO MID 90'S, REPORT GIVEN TO ROB GARCIA.
[2018-06-16] VITALS (7 sets, daily range): BP systolic 100–138; BP diastolic 55–99
--- NOTE | 2018-06-16 05:30 | NUR ---
ASSUMED PATIENT CARE AT 1900. PATIENT ALERT AND ORIENTED TIMES FOUR. STATES "I AM VERY DEPRESSED TONIGHT AND JUST WANT TO SLEEP" NPO STATUS MAINTAINED AFTER MIDNIGHT. COMPLAINTS OF PAIN NOTED, CONTROLLED WITH ORAL PAIN MEDICATIONS. PATIENT STATES THAT SHE HAS HAD DIARRHEA, THIS IS UNWITNESSED. UP AD ALEJANDRA IN ROOM. PILOT INSTRUCTOR AND HOURLY ROUNDING COMLETED CHARTED.
[2018-06-16 15:08] LABS: HEMATOCRIT 34.4 % (37.0-47.0); HEMOGLOBIN 11.3 gm/dL (12.0-15.0); MCH 28.3 pg (26.0-34.0); MCV 85.8 fL (80.0-100.0); MPV 7.1 fl. (7.2-11.1); RBC 4.01 mil/uL (4.20-5.00)
[2018-06-16 15:19] LABS: CALCIUM 9.7 mg/dL (8.5-10.1); CREATININE 0.9 mg/dL (0.6-1.3); MAGNESIUM 2.2 mg/dL (1.8-2.4); POTASSIUM 4.3 mmol/L (3.5-5.1)
--- NOTE | 2018-06-16 18:39 | NUR ---
VSS, ASSUMED CARE IN THE AM, PT WAS FOUND WITH NO IV AND AND IS TO HAVE EGD TODAY, FALL PRECAUTIONS IN PLACE NAD CALL LIGHT IN REACH, ASSESSMENT PERFORMED AND CAHRTED, PT IS TRACING SR ON THE MONITOR, SHE GETS UP WITH STAND BY ASSEST, IS WEARS 2L NC PRN AND HAS BACK PAIN, HE GOAL IS TO IMPROVE BREATHING AND SAFETY, NOT STATUS CHANGE AT THIS TIME.
[2018-06-17] VITALS: BP 135/75
--- NOTE | 2018-06-17 03:11 | NUR ---
ASSUMED PT CARE AT 1930, PT IS A&OX4, PT IS TRACING NSR ON THE MONITOR, ON 2L NC SATTING MID TO HIGH 90'S. PT C/O PAIN THROUGHTOUT THE NIGHT, PRN PAIN MEDICATIONS GIVEN PER OCT. BED IN LOW POSITION, CALL LIGHT IN REACH, BED ALARM ON, YELLOW ARM BAND AND SOCKS IN PLACE. HOURLY ROUNDING COMPLETED FOR PT SAFETY.
[2018-06-17 04:00] VITALS: BP 105/63
[2018-06-17 08:00] VITALS: BP 132/83
[2018-06-17 13:20] VITALS: BP 132/83
[2018-06-17] MEDS ORDERED: TOPROL XL25 MG PO (14:18)
[2018-06-17] MEDS ORDERED: NYSTATIN100000 UNI SW&SWALLOW (14:20)
[2018-06-17] MEDS ORDERED: PROTONIX40 M1 PO (14:21)
[2018-06-17] MEDS ORDERED: TYLENOL325 MG PO (14:22)
[2018-06-17] MEDS ORDERED: CEFUROXIME500 MG PO (14:25)
--- NOTE | 2018-06-17 15:17 | NUR ---
ORDER RECEIVED TO DISCHARGE PATIENT HOME TO SELF CARE WITH SUPPLEMENTAL OXYGEN. MED REC, MEDIATION EDUCATION, STROKE EDUCATION, AND NEED FOR FOLLOW UP CARE WITH PRIMARY CARE PHYSICIAN COVERED AND STATED UNDERSTOOD BY PATIENT. IV AND TELEMETRY PACK REMOVED. PATIENT TAKEN VIA WHEELCHAIR WITH PORTABVLE OXYGEN PROVIDED BY [facility]. DC TIME OF 15:00.
--- NOTE | 2018-06-18 09:11 | CON ---
[address] [address] CONSULTATION Name: KIMMIE URBINA Room: [address] IN .R.#: [id number] Admission: 06/10/18 Attend Phys: Jeffery Davison MD Discharge: 06/17/18 Date of : 66 Report #: [id number] THIS REPORT FOR: //name// CC: Jeffery Linares DATE OF SERVICE: 06/14/2018 REQUESTING PHYSICIAN: Dr. Davison. REASON FOR CONSULTATION: Tachycardia. HISTORY OF PRESENT ILLNESS: The patient is a 47-year-old female with a history of recurrent pneumonia type infections, presents with pneumonia and cough and shortness of breath. She has some right-sided chest and neck pain. This is positional and associated with cough. She presents afebrile. I am asked to see her because she has had a persistent kind of mild sinus tachycardia with heart rates in the low 100s to one-teens. She does feel that her heart is racing, but has no presyncope or syncope. The only time she has passed out, was when she had sepsis syndrome last year. Outside of this, she has not been having any symptoms. She was supposed to have a computer operations supervisor upon discharge from her last hospitalization, but this was not covered by her insurance apparently. She has no history of PA. She presents without any ST segment changes on her ECG and cardiac troponin levels are normal. Reportedly, she has normal thyroid function. She did test positive for opiates and this was on admission. PAST MEDICAL HISTORY: Significant for the following: Chronic bronchitis, ankle fracture, COPD, prior chronic low back pain, knee pain, polypharmacy. ALLERGIES: TAPE. HOME MEDICATIONS: Include Seroquel, Percocet, albuterol, morphine, Bentyl, Mobic, clonazepam, BuSpar, Nexium. PAST SURGICAL HISTORY: No recent surgery. REVIEW OF SYSTEMS: GASTROINTESTINAL: No nausea or vomiting. GENITOURINARY: No dysuria [place] [address] CONSULTATION Name: KIMMIE URBINA Room: [address] IN [facility].#: [id number] Admission: 06/10/18 Attend Phys: Jeffery Davison MD Discharge: 06/17/18 Date of : 66 Report #: [id number] PULMONARY: Shortness of breath. Positive cough. RENAL: No history of kidney failure. SKIN: No rashes. NEUROLOGIC: Denies any headaches, blurred vision or seizures. SKIN: No rash. CARDIOVASCULAR: No chest pain. Positive chest wall pain, no orthopnea, no PND, no edema, no weight gain or weight loss. PHYSICAL EXAMINATION: VITAL SIGNS: Blood pressure stable at 160/90, pulse is between 110-127, sinus tachycardia, temperature 36.9. GENERAL: This is a pleasant, mildly obese adult female. She is in no apparent distress. HEENT: Eyes, EOMs are intact. No facial asymmetry. NECK: Supple. No jugular venous distention. CARDIOVASCULAR: Regular, tachycardic. I cannot hear a murmur. LUNGS: Clear to auscultation. ABDOMEN: Soft, nontender. EXTREMITIES: There is no peripheral edema. IMAGING: CTA of the chest demonstrated no evidence of pulmonary embolus. Chronic elevation of right hemidiaphragm with scarring and atelectasis in the right lower lobe. Lungs are otherwise clear. LABORATORY DATA: Hemoglobin is 11.3, white blood count is 8.7. Sodium is 139, potassium is 3.9, chloride is 104, CO2 is 28, BUN 7, creatinine is 1.0. IMPRESSION: 1. Sinus tachycardia. I suspect this is reacting to either ischemia, withdrawal from drugs or dehydration. We will check an echocardiogram in a limited fashion to assess LV function. She is hemodynamically stable. 2. Pneumonia. Treated per our hospital doctors. 3. Elevated blood pressure. Her blood pressure is mostly in the normal range. I would continue to check her per protocol. 4. Chest pain, this seems pleuritic. If it persists, an outpatient stress test can be performed. <ELECTRONICALLY SIGNED> By: Juan Carlos Farnsworth MD, FACC 06/18/18 0911 1616 1120Max Franks MD, FACC /nt
--- NOTE | 2018-06-20 16:12 | PATH ---
[facility] [address] [place] [address] PATHOLOGY RPT PROCEDURE Name: KIMMIE RAMIREZ Room: [address] IN M.R.#: [id number] Admission: 06/10/18 Date of : 66 Discharge: 06/17/18 Report #: [id number] Path Case #: [id number] [facility] Accession Number: [id number] . 01 Material submitted: . GASTRIC ULCER BIOPSY . 01 Clinician provided ICD-10: K25.9 . 01 Clinical history: . Prepyloric ulcer . 02 Diagnosis: Gastric ulcer biopsy: - Moderate chronic and active gastritis, typical of reactive gastropathy (chemical gastritis), with erosion, negative for granulomas, Helicobacter pylori organisms and dysplasia. . (NIDIA:mml; 06/19/18) QLM/06/19/2018 . 02 Comment: Special stain: H. pylori immuno. . (NIDIA:mml; 06/19/18) . 02 Electronically signed: . Thiago Weir MD, Pathologist NPI- [id number] . 01 Gross description: . The specimen is received in formalin, labeled "Kimmie Ramirez, gastric BX ulcer" and consists of 3 fragments of garcía-brown tissue measuring between 0.4 x 0.2 x 0.1 cm and 0.4 x 0.3 x 0.2 cm. They are entirely submitted in A1. (SDY; 06/18/2018) SYU/SYU . 02 Pathologist provided ICD-10: K29.50, K25.9 . 02 CPT . 448700, Q00961 Specimen Comment: A courtesy copy of this report has been sent to Specimen Comment: [phone], , . Specimen Comment: Report sent to ,DR BANUELOS / DR REBOLLEDO Performed at: [address] [place] [address] PATHOLOGY RPT PROCEDURE Name: KIMMIE RAMIREZ Room: [address] IN [facility].#: [id number] Admission: 06/10/18 Date of : 66 Discharge: 06/17/18 Report #: [id number] Path Case #: [id number] [facility] [address] [place] [address] [address], [place], [place] [id number] MD Jeyson Brownlee MD Phone: [phone] Performed at: [address] [address] [address], [place], [place] [id number] MD Thiago Weir MD Phone: [phone]
== END 2018-06-17 15:30 | disposition home or self-care (01) | DRG 871 ==
LOC: M.ERS 19:16 → M.TBA-ER 21:36 → M.2W 21:36
PROVIDERS: Emergency Medicine Emergency Medical Services; Family Medicine; Internal Medicine
PROC: 05HB33Z Insertion of Infusion Device into Right Basilic Vein, Percutaneous Approach (ICD-10-PCS; principal; 2018-06-12)
PROC: 0DB68ZX Excision of Stomach, Via Natural or Artificial Opening Endoscopic, Diagnostic (ICD-10-PCS; 2018-06-16)
DX: A41.9 Sepsis, unspecified organism (principal); J18.9 Pneumonia, unspecified organism; J96.91 Respiratory failure, unspecified with hypoxia; N39.0 Urinary tract infection, site not specified; J44.1 Chronic obstructive pulmonary disease with (acute) exacerbation; J44.0 Chronic obstructive pulmonary disease with (acute) lower respiratory infection; F11.20 Opioid dependence, uncomplicated; J98.11 Atelectasis; J45.909 Unspecified asthma, uncomplicated; G89.29 Other chronic pain; M54.9 Dorsalgia, unspecified; I10 Essential (primary) hypertension; F41.9 Anxiety disorder, unspecified; F32.9 Major depressive disorder, single episode, unspecified; R00.0 Tachycardia, unspecified; K21.9 Gastro-esophageal reflux disease without esophagitis; F17.210 Nicotine dependence, cigarettes, uncomplicated; F12.90 Cannabis use, unspecified, uncomplicated; J20.9 Acute bronchitis, unspecified; J22 Unspecified acute lower respiratory infection; K29.70 Gastritis, unspecified, without bleeding; K25.9 Gastric ulcer, unspecified as acute or chronic, without hemorrhage or perforation; B37.9 Candidiasis, unspecified; K44.9 Diaphragmatic hernia without obstruction or gangrene; R12 Heartburn; Z90.49 Acquired absence of other specified parts of digestive tract; Z87.81 Personal history of (healed) traumatic fracture; Z82.49 Family history of ischemic heart disease and other diseases of the circulatory system; Z79.899 Other long term (current) drug therapy

== ENCOUNTER 2018-10-10 09:55 | Emergency (ER) | payer MEDICAID ==
[~2018-10-10] VITALS: Ht 165.1 cm; Wt 83.9 kg
[~2018-10-10 09:55] MED LIST changes: +CEFUROXIME500 MG PO; +EFFEXOR PO; +LORAZEPAM; +MS CONTIN15 MG PO; +NYSTATIN100000 UNI SW&SWALLOW; +OXYCODONE HCL10 MG PO; +PROTONIX40 M1 PO; +TIZANIDINE PO; +TYLENOL325 MG PO
[2018-10-10] MEDS ORDERED: TUMS PO (10:13)
[2018-10-10] MEDS ORDERED: PROBIOTIC1 EAC1 PO (10:13)
[2018-10-10] MEDS ORDERED: VITAMIN B-12500 MCG PO (10:13)
[2018-10-10] MEDS ORDERED: TRAZODONE 150150 M1 PO (10:14)
[2018-10-10 11:55] VITALS: BP 95/60
== END 2018-10-10 12:00 | disposition home or self-care (01) ==
LOC: M.ERS 09:55
DX: S20.211A Contusion of right front wall of thorax, initial encounter (principal); J44.9 Chronic obstructive pulmonary disease, unspecified; I10 Essential (primary) hypertension; F41.9 Anxiety disorder, unspecified; Z90.49 Acquired absence of other specified parts of digestive tract; M54.9 Dorsalgia, unspecified; G89.29 Other chronic pain; F17.210 Nicotine dependence, cigarettes, uncomplicated; Z91.09 Other allergy status, other than to drugs and biological substances; X58.XXXA Exposure to other specified factors, initial encounter; Y93.89 Activity, other specified; Y92.89 Other specified places as the place of occurrence of the external cause; Y99.8 Other external cause status

== ENCOUNTER → 2018-10-16 | Outpatient (CLI) | payer MEDICAID ==
[~2018-10-16] MED LIST changes: +PROBIOTIC1 EAC1 PO; +TUMS PO
== END ==
LOC: M.ULTRA 10:28
DX: R10.11 Right upper quadrant pain (principal); Z90.49 Acquired absence of other specified parts of digestive tract

== ENCOUNTER → 2019-01-11 | Day surgery (SDC) | payer MEDICAID ==
[~2019-01-11] MED LIST changes: +CARAFATE 1 GM TA1 G1 PO; +CHANTIX1 MG PO; +HYSINGLA ER30 MG PO; +PREMPRO 0.3 MG1 EACH PO
--- NOTE | 2019-01-11 11:21 | EKG ---
[place] [address] ELECTROCARDIOGRAM REPORT Name: KIMMIE URBINA Room: [facility]#: [id number] Admission: 01/11/19 Attend Phys: Ailyn Bills MD Discharge: Date of : 66 Report #: [id number] THIS REPORT FOR: //name// [facility] Test Date: 2019-01-11 Test Time: 10:31:39 Pat Name: KIMMIE URBINA Department: Room: Gender: F Culinary Intern: : 1970 Requested By: Ailyn Bills Order Number: [id number] Reading MD: Corby Merritt Measurements Intervals [place] Rate: 83 P: 52 NC: 149 QRS: 20 QRSD: 85 T: 9 QT: 360 QTc: 423 Interpretive Statements Sinus rhythm Compared to ECG 06/10/2018 19:27:33 Sinus tachycardia no longer present Electronically Signed On 01-11-2019 11:21:41 CDT by Corby Merritt [email or web address] <ELECTRONICALLY SIGNED> By: Corby Merritt MD, [facility] 01/11/19 1121 1031 1031 Corby Merritt MD, FACC /EPI
== END | disposition home or self-care (01) ==
LOC: M.SUR 12-21 07:01
DX: K64.8 Other hemorrhoids (principal); R10.9 Unspecified abdominal pain; I10 Essential (primary) hypertension; J44.9 Chronic obstructive pulmonary disease, unspecified; K21.9 Gastro-esophageal reflux disease without esophagitis; E66.09 Other obesity due to excess calories; E03.9 Hypothyroidism, unspecified; F32.9 Major depressive disorder, single episode, unspecified; D64.9 Anemia, unspecified; F41.9 Anxiety disorder, unspecified; G89.29 Other chronic pain; M54.5 Low back pain; Z80.0 Family history of malignant neoplasm of digestive organs; Z98.890 Other specified postprocedural states; Z90.49 Acquired absence of other specified parts of digestive tract; Z79.899 Other long term (current) drug therapy; Z79.891 Long term (current) use of opiate analgesic; Z99.81 Dependence on supplemental oxygen; Z79.1 Long term (current) use of non-steroidal anti-inflammatories (NSAID)

== ENCOUNTER 2019-02-06 10:07 | Emergency (ER) | payer MEDICAID ==
[~2019-02-06] VITALS: Ht 165.1 cm; Wt 80.7 kg
[2019-02-06] MEDS ORDERED: FLEXERIL PO (10:21)
[2019-02-06] MEDS ORDERED: PROAIR HFA8.5 GM PO (10:21)
[2019-02-06] MEDS ORDERED: SYNTHROID88 MCG PO (10:21)
[2019-02-06] MEDS ORDERED: KEFLEX500 M1 PO (10:31)
[2019-02-06 10:42] VITALS: BP 139/90
== END 2019-02-06 10:42 | disposition home or self-care (01) ==
LOC: M.ERS 10:07
DX: H44.002 Unspecified purulent endophthalmitis, left eye (principal); F17.210 Nicotine dependence, cigarettes, uncomplicated; I10 Essential (primary) hypertension; J44.9 Chronic obstructive pulmonary disease, unspecified; F41.9 Anxiety disorder, unspecified; M54.9 Dorsalgia, unspecified; G62.9 Polyneuropathy, unspecified; G89.29 Other chronic pain; Z90.49 Acquired absence of other specified parts of digestive tract; Z91.048 Other nonmedicinal substance allergy status

== ENCOUNTER → 2019-05-08 | Outpatient (CLI) | payer MEDICAID ==
[~2019-05-08] MED LIST changes: +KEFLEX500 M1 PO; +PROAIR HFA8.5 GM PO; +SYNTHROID88 MCG PO
== END ==
LOC: M.LAB 13:30 → M.CT 15:00
PROVIDERS: Surgery
DX: K42.9 Umbilical hernia without obstruction or gangrene (principal); J98.11 Atelectasis; Z90.49 Acquired absence of other specified parts of digestive tract